=== PATIENT | female | born 1975 | race Caucasian/White ===

== ENCOUNTER 2017-04-10 20:03 | Emergency (ER) | payer SELFPAY ==
[2017-04-10 20:29] VITALS: BP 131/51
--- NOTE | 2017-04-10 21:59 | UC ---
Knee Pain HPI - HPI Summary HPI Summary: 41 yo female tripped at workbthis AM valgus stress to knee now hurts to extend and medial knee pain - History of Current Complaint Chief Complaint: UCLowerExtremity Stated Complaint: KNEE INJURY Time Seen by Provider: 04/10/17 21:44 Hx Obtained From: Patient Hx Last Menstrual Period: 03/24/17 Onset/Duration: Sudden Onset, Lasting Hours Severity Initially: Moderate Severity Currently: Mild Location Of Injury: right knee Pain Intensity: 3 - much worse with movement Pain Scale Used: 0-10 Numeric Character: Sharp, Aching Aggravating Factor(s): Movement, Weight Bearing Alleviating Factor(s): Rest, OTC Meds Able to Bear Weight: Yes - Allergies/Home Medications Allergies/Adverse Reactions: Allergies Allergy/AdvReac Type Severity Reaction Status Date / Time Hydrocodone Allergy Severe Rash Verified 04/10/17 20:29 Latex Allergy Severe Rash Verified 04/10/17 20:29 Home Medications: Home Medications Sertraline* [Zoloft*] 100 mg PO DAILY 04/10/17 [History Confirmed 04/10/17] PMH/Surg Hx/FS Hx/Imm Hx Previously Healthy: Yes Endocrine History: Hypothyroidism Psychological History: Depression - Surgical History Surgical History: Yes Surgery Procedure, Year, and Place: ECTOPIC RUPTURE (TUBE REPAIRED). 3 ANKLE SURGERIES. T&A. D&C (FOLLOWING MISCARRIAGE). x2 . SURGERY TO REMOVE TOOTHPICK FROM FOOT - Family History Known Family History: Positive: Hypertension - Social History Alcohol Use: None Substance Use Type: None Smoking Status (MU): Former Smoker Amount Used/How Often: 1 ppd Length of Time of Smoking/Using Tobacco: from age 15 to 41 When Did the Patient Quit Smoking/Using Tobacco: quit 01/13 - Immunization History Most Recent Influenza Vaccination: 09/10/13 Most Recent Tetanus Shot: 05/28/14 Most Recent Pneumonia Vaccination: none Review of Systems Constitutional: Negative Skin: Negative Eyes: Negative ENT: Negative Respiratory: Negative Cardiovascular: Negative Gastrointestinal: Negative Genitourinary: Negative Motor: Negative Neurovascular: Negative Musculoskeletal: Arthralgia Neurological: Negative Psychological: Negative Is Patient Immunocompromised?: No All Other Systems Reviewed And Are Negative: Yes Physical Exam Triage Information Reviewed: Yes Appearance: Well-Appearing, No Pain Distress, Well-Nourished Vital Signs: Initial Vital Signs Temp 98.0 F 04/10/17 20:25 Pulse 84 04/10/17 20:25 Resp 14 04/10/17 20:25 BP 131/51 04/10/17 20:25 Pulse Ox 100 04/10/17 20:25 Vital Signs Reviewed: Yes Eyes: Positive: Conjunctiva Clear ENT: Positive: Hearing grossly normal. Negative: Nasal congestion, Nasal drainage, Trismus, Muffled/hoarse voice Neck: Positive: Supple, Nontender Respiratory: Positive: Lungs clear, Normal breath sounds, No respiratory distress Cardiovascular: Positive: RRR, No Murmur Musculoskeletal: Positive: Other: - see image Neurological: Positive: Alert Psychological Exam: Normal Skin Exam: Normal Knee Pain Course/Dx - Differential Dx/Diagnosis Provider Diagnoses: right knee injury. suspect medial meniscus tear Discharge - Discharge Plan Condition: Stable Disposition: HOME Patient Education Materials: Meniscus Tear (ED) Forms: *Work Release Referrals: Moon Vazquez MD [Medical Doctor] - As Soon As Possible Additional Instructions: knee immobilizer rest elevate ice advil Images Front/Back of Body, Lg (Ceiba): 1 - tender medial joint line. stable joint. no effusion
--- NOTE | 2017-04-11 07:17 | RAD ---
INDICATION: Right knee injury. TECHNIQUE: 4 views of the right knee were obtained. FINDINGS: The bones are in normal alignment. No joint effusion or fracture is seen. Joint spaces appear maintained. IMPRESSION: NO EVIDENCE FOR FRACTURE.
== END 2017-04-10 22:51 | disposition home or self-care (01) ==
LOC: UCEAST 20:03
DX: S89.91XA Unspecified injury of right lower leg, initial encounter (principal); W18.40XA Slipping, tripping and stumbling without falling, unspecified, initial encounter; Y93.9 Activity, unspecified; Y92.9 Unspecified place or not applicable; Y99.0 Civilian activity done for income or pay; F32.9 Major depressive disorder, single episode, unspecified; Z87.891 Personal history of nicotine dependence
CPT/HCPCS: 99212; G0463

== ENCOUNTER 2017-07-21 19:28 | Emergency (ER) | payer OTHER ==
[2017-07-21] MEDS ORDERED: Amoxicillin/Clavulanate TAB* 875 MG PO ONE (20:22)
[2017-07-21 20:39] VITALS: BP 131/91
--- NOTE | 2017-07-23 22:43 | UC ---
Meghna Paiz Thomas, scribed for Ru Hernandez MD on 07/21/17 at 202 . Ear Complaint HPI - HPI Summary HPI Summary: The patient is a 41 year old female presenting to Urgent Care complaining of right ear pain that began two days ago. The pain is constant and is describes as sharp. She has a history of sinus infections. Patient additionally complains of postnasal drip. - History of Current Complaint Stated Complaint: EAR,SINUS PAIN Time Seen by Provider: 07/21/17 20:14 Hx Obtained From: Patient Hx Last Menstrual Period: 03/24/17 Onset/Duration: Lasting Days - 2, Still Present Severity Currently: Moderate Aggravating Factors: Nothing Alleviating Factors: Nothing Associated Signs/Symptoms: Negative: Trauma to Ear Related History: Other (Noted In Comments) - Hx of sinus infections - Allergies/Home Medications Allergies/Adverse Reactions: Allergies Allergy/AdvReac Type Severity Reaction Status Date / Time Hydrocodone Allergy Severe Rash Verified 07/22/17 13:19 Latex Allergy Severe Rash Verified 07/22/17 13:19 PMH/Surg Hx/FS Hx/Imm Hx Previously Healthy: No - Sinus infections; NEGATIVE: DM - Surgical History Surgical History: Yes Surgery Procedure, Year, and Place: ECTOPIC RUPTURE (TUBE REPAIRED). 3 ANKLE SURGERIES. T&A. D&C (FOLLOWING MISCARRIAGE). x2 . SURGERY TO REMOVE TOOTHPICK FROM FOOT - Family History Known Family History: Positive: Hypertension - Social History Lives: With Family Alcohol Use: None Substance Use Type: None Smoking Status (MU): Former Smoker Amount Used/How Often: 1 ppd Length of Time of Smoking/Using Tobacco: from age 15 to 41 When Did the Patient Quit Smoking/Using Tobacco: quit 01/13 - Immunization History Most Recent Influenza Vaccination: 09/10/13 Most Recent Tetanus Shot: 05/28/14 Most Recent Pneumonia Vaccination: none Review of Systems Constitutional: Other - NEGATIVE: fever ENT: Ear Ache - R, Other - Postnasal drip Is Patient Immunocompromised?: No All Other Systems Reviewed And Are Negative: Yes Physical Exam Triage Information Reviewed: Yes Vital Signs: Initial Vital Signs Temp 98.2 F 07/21/17 20:27 Pulse 107 07/21/17 20:27 Resp 16 07/21/17 20:27 BP 131/91 07/21/17 20:27 Pulse Ox 96 07/21/17 20:27 Vital Signs Reviewed: Yes - Additional Comments VITAL SIGNS: Reviewed. GENERAL: Patient is a well-developed and nourished female who is lying comfortable in the stretcher. Patient is not in any acute respiratory distress. HEAD AND FACE: Normocephalic. She has maxillary sinus tenderness. EYES: PERRLA, EOMI x 2. EARS: Hearing grossly intact. NOSE: There is some nasal mucosa erythema. MOUTH: Oropharynx within normal limits. There is some postnasal drip. NECK: Supple, trachea is midline, no adenopathy, no JVD, no carotid bruit. CHEST: Symmetric, no tenderness at palpation LUNGS: Clear to auscultation bilaterally. No wheezing or crackles. CVS: Regular rate and rhythm, S1 and S2 present, no murmurs or gallops appreciated. ABDOMEN: Soft, non-tender. Bowel sounds are normal. No abdominal abnormal pulsations. EXTREMITIES: Full ROM in all major joints, no edema, no cyanosis or clubbing. NEURO: Alert and oriented x 3. No acute neurological deficits. Speech is normal and follows commands. SKIN: Dry and warm Ear Complaint Course/Dx - Course Course Of Treatment: The patient is a 41 year old female presenting to Urgent Care complaining of right ear pain that began two days ago. The pain is constant and is describes as sharp. She has a history of sinus infections. Patient additionally complains of postnasal drip. She has maxillary sinus tenderness. There is some nasal mucosa erythema. There is some postnasal drip. The patient was given Augmentin at urgent care. The patient is diagnosed with sinusitis. The patient will be discharged home and instructed to follow up with primary care. The patient is prescribed Augmentin. - Differential Dx/Diagnosis Differential Diagnosis/HQI/PQRI: Bronchitis, Pharyngitis, URI Provider Diagnoses: Sinusitis Discharge - Discharge Plan Condition: Stable Disposition: HOME Prescriptions: Amoxicillin/Clavulanate TAB* [Augmentin TAB 875*] 875 mg PO BID #19 tab Patient Education Materials: Sinusitis (ED) Referrals: Dudley Rodriguez MANAGER [employer] [Primary Care Provider] - 3 Days Additional Instructions: Follow up with your primary care physician in three days. Return to urgent care for any new or worsening symptoms. The documentation as recorded by the Meghna lindsey Thomas accurately reflects the service I personally performed and the decisions made by me, Ru Hernandez MD.
== END 2017-07-21 21:10 | disposition home or self-care (01) ==
LOC: UCEAST 19:28
DX: J32.9 Chronic sinusitis, unspecified (principal); Z88.5 Allergy status to narcotic agent; Z91.040 Latex allergy status; Z87.891 Personal history of nicotine dependence
CPT/HCPCS: 99212; A9270-GY; G0463

== ENCOUNTER 2017-07-22 11:41 | Emergency (ER) | payer OTHER ==
[2017-07-22 13:25] VITALS: BP 118/78
--- NOTE | 2017-07-22 14:01 | UC ---
General HPI - HPI Summary HPI Summary: PT presents to ED requesting flu testing. 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 pt was evaluated yesterday at and dx with Amox. Pt states her sx have improved - continues with green congestion. Pt is also taking flonase. Pt with slight wheeze. Pt's son was dx with influenza yesterday and she is requesting testing. No fever, chills. No cp. no abdominal pain. no n/v/d. Pt has been using son's inhaler intermittently for wheeze with good effect. Pt's medications reviewed this visit [facility] 07/19/17 - History of Current Complaint Chief Complaint: UCGeneralIllness Stated Complaint: COUGH Time Seen by Provider: 07/22/17 13:27 Hx Obtained From: Patient, Medical Records Hx Last Menstrual Period: 07/19/17 Onset/Duration: Gradual Onset Timing: Constant Onset Severity: Moderate Current Severity: Moderate Associated Signs & Symptoms: Positive: Cough, Wheezing. Negative: Dizziness - Allergy/Home Medications Allergies/Adverse Reactions: Allergies Allergy/AdvReac Type Severity Reaction Status Date / Time Hydrocodone Allergy Severe Rash Verified 07/22/17 13:19 Latex Allergy Severe Rash Verified 07/22/17 13:19 PMH/Surg Hx/FS Hx/Imm Hx Previously Healthy: Yes Psychological History: Depression - Surgical History Surgical History: Yes Surgery Procedure, Year, and Place: ECTOPIC RUPTURE (TUBE REPAIRED). 3 ANKLE SURGERIES. T&A. D&C (FOLLOWING MISCARRIAGE). x2 . SURGERY TO REMOVE TOOTHPICK FROM FOOT - Family History Known Family History: Positive: Hypertension - Social History Occupation: Employed Full-time Lives: With Family Alcohol Use: None Substance Use Type: None Smoking Status (MU): Light Every Day Tobacco Smoker - 5 cig/day Amount Used/How Often: 1 ppd Length of Time of Smoking/Using Tobacco: from age 15 to 41 When Did the Patient Quit Smoking/Using Tobacco: quit 01/13 - Immunization History Most Recent Influenza Vaccination: 2016 Most Recent Tetanus Shot: 05/28/14 Most Recent Pneumonia Vaccination: none Review of Systems Constitutional: Negative ENT: Sinus Congestion Respiratory: Cough All Other Systems Reviewed And Are Negative: Yes Physical Exam Triage Information Reviewed: Yes Appearance: Well-Appearing, No Pain Distress, Well-Nourished Vital Signs: Initial Vital Signs Temp 97.2 F 07/22/17 13:20 Pulse 87 07/22/17 13:20 Resp 20 07/22/17 13:20 BP 118/78 07/22/17 13:20 Pulse Ox 100 07/22/17 13:20 Vital Signs Reviewed: Yes Eye Exam: Normal Eyes: Positive: Conjunctiva Clear ENT Exam: Normal ENT: Positive: Pharynx normal, Nasal congestion, TMs normal, Other - turbinates inflammed and boggy + PND uvula midline no exudate, no erythema Dental Exam: Normal Neck exam: Normal Neck: Positive: Supple, Nontender, No Lymphadenopathy Respiratory Exam: Normal Respiratory: Positive: Chest non-tender, Lungs clear, Normal breath sounds, Wheezing - few scattered wheeze. Negative: No respiratory distress Cardiovascular Exam: Normal Cardiovascular: Positive: RRR, No Murmur, Pulses Normal Abdominal Exam: Normal Abdomen Description: Positive: Nontender, No Organomegaly, Soft Musculoskeletal Exam: Normal Neurological Exam: Normal Neurological: Positive: Alert Psychological Exam: Normal Skin Exam: Normal Course/Dx - Course Course Of Treatment: Pt on abx for amoxicillin. Pt family member + flu (child) . Will start Tamiflu prohpylaxis. Rx MDI albuterol - pt using son's. Pt requesting diflucan for abx related yeast. secretion precaution. hydrate. continue with current tx - Differential Dx - Multi-Symptom Provider Diagnoses: sinusitis. influenza exposure Discharge - Discharge Plan Condition: Stable Disposition: HOME Prescriptions: Albuterol HFA INHALER* [Ventolin HFA Inhaler*] 1 puff INH Q4H PRN #1 mdi PRN Reason: wheeze Fluconazole 150 MG (NF) [Diflucan 150 mg (NF)] 150 mg PO ONCE PRN #1 tab PRN Reason: yeast infection Oseltamivir Phosphate [Tamiflu] 75 mg PO DAILY #7 cap Patient Education Materials: Sinusitis (ED) Referrals: Dudley Rodriguez NP [Primary Care Provider] - Additional Instructions: - Finish antibiotics as previously prescribed for sinus infection - you have been given a prescription for diflucan - okay to take if you need for yeast infection following your antibiotics - Use inhaler - 2 puffs, every 4 hours for wheeze and cough - Take Tamiflu once daily for influenza prophylaxis - Work to decrease cigarette smoke - - After you have been on antibiotics for 2 days - change your toothbrush and your pillowcase. These infections are spread by secretions - do NOT share eating or drinking utensils - clean items you share with other people such as cell phones, computer mouse, TV remote, computer tablets, etc - Contact your doctor or return with questions or concerns
== END 2017-07-22 14:10 | disposition home or self-care (01) ==
LOC: UCEAST 11:41
DX: J32.9 Chronic sinusitis, unspecified (principal); Z20.828 Contact with and (suspected) exposure to other viral communicable diseases; Z88.5 Allergy status to narcotic agent; F32.9 Major depressive disorder, single episode, unspecified; F17.210 Nicotine dependence, cigarettes, uncomplicated; Z91.040 Latex allergy status
CPT/HCPCS: 87502; 99212; G0463

== ENCOUNTER 2018-07-18 07:29 | Day surgery (SDC) | payer OTHER ==
[~2018-07-18 07:29] MED LIST: Buffered Lidocaine 0.9% SYRIN* 5 ML/SYR SYRINGE INTRADERM ONE; Famotidine IV* 10 MG/ML 2 ML (20 mg) IV ONE; Lactated Ringers 1000 ML Bag* 1,000 ML IV SCH
[2018-07-18] MEDS ORDERED: Famotidine IV* 10 MG/ML 2 ML (20 mg) ONE (08:09)
[2018-07-18] MEDS ORDERED: Midazolam* 1 MG/ML 5 ML VIAL (5 MG) ONE (09:16)
[2018-07-18] MEDS ORDERED: Rocuronium* 10 MG/ML VIAL ONE (09:27)
[2018-07-18] MEDS ORDERED: fentaNYL* 50 MCG/ML 2 ML VIAL (100 MCG VIAL) ONE ×2 (09:27→09:40)
[2018-07-18] MEDS ORDERED: Succinylcholine* 20 MG/ML 10 ML VIAL ONE (09:38)
[2018-07-18] MEDS ORDERED: Dexamethasone IV* 4 MG/ML 1 ML (4 MG) ONE (09:38)
[2018-07-18] MEDS ORDERED: Ondansetron INJ* 2 MG/ML VIAL ONE (09:38)
[2018-07-18] MEDS ORDERED: Propofol* 10 MG/ML 20 ML BTL ONE (09:38)
[2018-07-18] MEDS ORDERED: DiMENhydriNATE IV* 50 MG/ML VIAL ONE (09:38)
[2018-07-18] MEDS ORDERED: Ketorolac INJ* 30 MG/ML 1 ML VIAL ONE (09:38)
[2018-07-18] MEDS ORDERED: Lidocaine 2% PF * 5 ML VIAL ONE (09:39)
[2018-07-18] MEDS ORDERED: Acetaminophen IV 1GM/100ML * 1,000 MG/100 ML VIAL IVPB ONE (09:57)
[2018-07-18] MEDS ORDERED: Naloxone* 0.4 MG/ML 1 ML VIAL IV PRN (09:57)
[2018-07-18] MEDS ORDERED: DiMENhydriNATE IV* 50 MG/ML VIAL IV PUSH PRN (09:57)
[2018-07-18] MEDS ORDERED: oxyCODONE/Acetamin 5/325 MG* TAB PO PRN (09:57)
[2018-07-18] MEDS ORDERED: HYDROmorphone INJ1* 1 MG/ML SYRINGE IV PRN (09:57)
[2018-07-18] MEDS ORDERED: Acetaminophen IV 1GM/100ML * 100 ML ONE (10:25)
[2018-07-18 11:03] VITALS: BP 112/74
--- NOTE | 2018-07-18 12:20 | OP ---
DATE OF OPERATION: 07/18/18 - [facility] DATE OF : 79 SURGEON: Evans Camacho MD ANESTHESIA: General endotracheal tube. PRE-OP DIAGNOSIS: Desires permanent sterilization. POST-OP DIAGNOSIS: Desires permanent sterilization. OPERATIVE PROCEDURE: Laparoscopic bilateral tubal ligation. COMPLICATIONS: None. FINDINGS: On laparoscopy, the anterior vesicoperitoneal fold_ contained some scarring of the uterus to the anterior bladder flap. Both tubes and ovaries appeared normal. The uterus appeared normal. DESCRIPTION OF PROCEDURE: The patient was identified, procedure identified as a laparoscopic bilateral tubal ligation. The patient was taken to the operating room, prepped and draped in the usual fashion in the dorsal lithotomy position under general anesthesia. A small infraumbilical incision was made and a Verses needle was inserted through this. The abdomen was insufflated to 50 mmHg. The Veress needle was removed and the trocar was inserted and the laparoscope was inserted and above findings were noted. A second incision was made 2 cm above the pubic symphysis in the midline, and a second trocar was inserted under direct visualization. Because of the location of the second trocar close to the laparoscope, we opted to replace that because it was too close. At this point, the right fallopian tube was grasped in its mid portion, followed out to its fimbriated ends and fulgurated x4. The same procedure was carried out on the left after following it out to its fimbriated ends. Hemostasis was verified. All the instruments removed from the abdomen. The abdomen was deflated of CO2. Sponge and sponge stick removed from vagina and the patient returned to recovery room in stable condition. [id number]/[facility] #: [id number] [facility]
== END 2018-07-18 11:05 | disposition home or self-care (01) ==
LOC: OR 07:29
PROVIDERS: ATTEND Obstetrics & Gynecology
DX: Z30.2 Encounter for sterilization (principal); A60.04 Herpesviral vulvovaginitis; Z87.891 Personal history of nicotine dependence; E03.9 Hypothyroidism, unspecified; J43.9 Emphysema, unspecified; E66.01 Morbid (severe) obesity due to excess calories; F41.9 Anxiety disorder, unspecified
CPT/HCPCS: 81025; J0330; J1100; J1240; J1885; J2250; J2405; J2704; J3010

== ENCOUNTER 2018-11-11 08:36 | Emergency (ER) | payer OTHER ==
[2018-11-11 09:00] VITALS: BP 124/81
--- NOTE | 2018-11-11 09:33 | UC ---
Back Pain HPI - HPI Summary HPI Summary: 42 yo female with the onset of severe LBP yesterday Often has back strains but this is atpical for severe certain movements cause severe sharp pains which radiate to her right flank no leg pain or paresthesias no UTI symptoms no f/c no bowel or bladder dysfunction - History of Current Complaint Chief Complaint: UCBackPain Stated Complaint: BACK PAIN Time Seen by Provider: 11/11/18 09:06 Hx Obtained From: Patient Hx Last Menstrual Period: 10/28/18 Onset/Duration: Gradual Onset, Lasting Hours Timing: Constant Severity Initially: Severe Severity Currently: Severe Pain Intensity: 7 Pain Scale Used: 0-10 Numeric Back Pain: Is Discrete @, Radiates To - right flank Character: Aching, Throbbing, Spasmodic Aggravating Factor(s): Movement Alleviating Factor(s): Nothing Associated Signs And Symptoms: Positive: Flank Pain. Negative: Swelling, Redness, Bruising, Fever, Weakness, Numbness, Tingling, Abdominal Pain, Bladder Incontinence, Bowel Incontinence, Weight Loss, Pain with Weight Bearing Full Body (No Head): 1 - pain 2 - radiates here - Allergies/Home Medications Allergies/Adverse Reactions: Allergies Allergy/AdvReac Type Severity Reaction Status Date / Time latex Allergy Severe Rash Verified 11/11/18 09:00 hydrocodone Allergy Rash Verified 11/11/18 09:00 environmental Allergy itchy eyes Uncoded 11/11/18 09:00 PMH/Surg Hx/FS Hx/Imm Hx Previously Healthy: Yes - Surgical History Surgical History: Yes Surgery Procedure, Year, and Place: ECTOPIC RUPTURE (TUBE REPAIRED). 3 ANKLE SURGERIES - FRACTURES - ALL HARDEWARE REMOVED. T&A. tubal. D&C ( FOLLOWING MISCARRIAGE)& SURG . x2 . SURGERY TO REMOVE TOOTHPICK FROM FOOT. SEPTOPLASTY AND TURBULANT REDUCTION 12/2017 - Family History Known Family History: Positive: Hypertension - Social History Alcohol Use: None Substance Use Type: None Smoking Status (MU): Former Smoker Amount Used/How Often: pack a day for 30 yrs Length of Time of Smoking/Using Tobacco: from age 15 to 41 Have You Smoked in the Last Year: Yes When Did the Patient Quit Smoking/Using Tobacco: 5 months ago - Immunization History Most Recent Influenza Vaccination: 2017 Most Recent Tetanus Shot: 05/28/14 Most Recent Pneumonia Vaccination: none Review of Systems All Other Systems Reviewed And Are Negative: Yes Constitutional: Positive: Negative Skin: Positive: Negative Eyes: Positive: Negative ENT: Positive: Negative Respiratory: Positive: Negative Cardiovascular: Positive: Palpitations Gastrointestinal: Positive: Negative Genitourinary: Positive: Negative Motor: Positive: Negative Neurovascular: Positive: Negative Musculoskeletal: Positive: Myalgia - back Neurological: Positive: Negative, Other - -SLR Psychological: Positive: Negative Physical Exam Triage Information Reviewed: Yes Appearance: Well-Appearing, No Pain Distress, Well-Nourished Vital Signs: Initial Vital Signs Temp 98.2 F 11/11/18 08:56 Pulse 73 11/11/18 08:56 Resp 18 11/11/18 08:56 BP 124/81 11/11/18 08:56 Pulse Ox 98 11/11/18 08:56 Vital Signs Reviewed: Yes Eyes: Positive: Conjunctiva Clear ENT: Positive: Hearing grossly normal, Uvula midline. Negative: Nasal congestion, Nasal drainage, Tonsillar exudate, Trismus, Muffled voice, Hoarse voice Dental Exam: Normal Neck: Positive: Supple, Nontender, No Lymphadenopathy Respiratory: Positive: Lungs clear, Normal breath sounds, No respiratory distress, No accessory muscle use Cardiovascular: Positive: RRR, No Murmur Abdomen Description: Positive: Nontender, No Organomegaly. Negative: CVA Tenderness (R) Musculoskeletal: Positive: ROM Intact, No Edema Neurological: Positive: Alert Psychological Exam: Normal Skin Exam: Normal Diagnostics - Radiology No standard instances Radiology Interpretation Completed By: Radiologist Summary of Radiographic Findings: LS films (-) Back Pain Course/Dx - Course Course Of Treatment: UA- no leuks or RBCs - Differential Dx/Diagnosis Provider Diagnosis: Acute lumbar myofascial strain Discharge - Sign-Out/Discharge Documenting (check all that apply): Patient Departure All imaging exams completed and their final reports reviewed: Yes - Discharge Plan Condition: Stable Disposition: HOME Prescriptions: Cyclobenzaprine HCl 5 mg PO TID PRN #21 tablet PRN Reason: Spasms Patient Education Materials: Low Back Strain (ED) Forms: *Work Release Referrals: Jennifer,Dudley, TELEPHONE DIRECTORY DISTRIBUTOR DRIVER [Primary Care Provider] - 4 Days (if not better) - Billing Disposition and Condition Condition: STABLE Disposition: Home
== END 2018-11-11 10:45 | disposition home or self-care (01) ==
LOC: UCEAST 08:36
DX: S39.012A Strain of muscle, fascia and tendon of lower back, initial encounter (principal); X58.XXXA Exposure to other specified factors, initial encounter; Y92.9 Unspecified place or not applicable; R00.2 Palpitations; Z91.040 Latex allergy status; Z88.5 Allergy status to narcotic agent; Z91.048 Other nonmedicinal substance allergy status; Z87.891 Personal history of nicotine dependence
CPT/HCPCS: 72110; 81003; 99212; G0463

== ENCOUNTER 2019-06-27 08:26 | Emergency (ER) | payer OTHER ==
[2019-06-27 08:36] VITALS: BP 120/77
--- NOTE | 2019-06-27 08:45 | UC ---
Lower Extremity/Ankle HPI - HPI Summary HPI Summary: Week ago she twisted her left foot and since that time and has been swollen and discolored. She comes in for an x-ray just to make sure it is not broken. It doesn't hurt that much to walk on it but it hurts to put her shoe on because of the swelling. - History of Current Complaint Chief Complaint: UCLowerExtremity Stated Complaint: L FOOT INJURY Time Seen by Provider: 06/27/19 08:35 Hx Obtained From: Patient Hx Last Menstrual Period: just finished - Jun 20 Onset/Duration: Sudden Onset Severity Initially: Moderate Severity Currently: Mild Pain Intensity: 2 Aggravating Factor(s): Other - Touch Able to Bear Weight: Yes - Allergies/Home Medications Allergies/Adverse Reactions: Allergies Allergy/AdvReac Type Severity Reaction Status Date / Time latex Allergy Severe Rash Verified 06/27/19 08:36 hydrocodone Allergy Rash Verified 06/27/19 08:36 environmental Allergy itchy eyes Uncoded 06/27/19 08:36 PMH/Surg Hx/FS Hx/Imm Hx Endocrine History: Thyroid Disease - Surgical History Surgical History: Yes Surgery Procedure, Year, and Place: ECTOPIC RUPTURE (TUBE REPAIRED). 3 ANKLE SURGERIES - FRACTURES - ALL HARDEWARE REMOVED. T&A. tubal ligation. D&C (FOLLOWING MISCARRIAGE)& SURG . x2 . SURGERY TO REMOVE TOOTHPICK FROM FOOT. SEPTOPLASTY AND TURBINATE REDUCTION 12/2017 - Family History Known Family History: Positive: Hypertension - Social History Alcohol Use: None Substance Use Type: None Smoking Status (MU): Former Smoker Amount Used/How Often: pack a day for 30 yrs Length of Time of Smoking/Using Tobacco: from age 15 to 41 Have You Smoked in the Last Year: Yes When Did the Patient Quit Smoking/Using Tobacco: 5 months ago - Immunization History Most Recent Influenza Vaccination: 2017 Most Recent Tetanus Shot: 05/28/14 Most Recent Pneumonia Vaccination: none Review of Systems All Other Systems Reviewed And Are Negative: Yes Musculoskeletal: Positive: Edema Physical Exam - Summary Physical Exam Summary: She was nontoxic in appearance with stable vital signs Triage Information Reviewed: Yes Appearance: Obese - Class III Vital Signs: Initial Vital Signs Temp 97.3 F 06/27/19 08:33 Pulse 77 06/27/19 08:33 Resp 16 11/29/19 08:33 BP 120/77 06/27/19 08:33 Pulse Ox 98 06/27/19 08:33 Vital Signs Reviewed: Yes Musculoskeletal: Positive: Edema @ - There is some mild swelling on the dorsum of the foot with an area of ecchymosis mid foot Neurological Exam: Normal Skin Exam: Normal Diagnostics - Radiology Left Foot Radiology Interpretation Completed By: Radiologist Summary of Radiographic Findings: No fracture Lower Extremity Course/Dx - Course Course Of Treatment: She just wanted to make sure there was no fracture. She is walking fine and does not want any kind of immobilization or restraint. - Differential Dx/Diagnosis Provider Diagnosis: Foot sprain Discharge ED - Sign-Out/Discharge Documenting (check all that apply): Patient Departure All imaging exams completed and their final reports reviewed: Yes - Discharge Plan Condition: Stable Disposition: HOME Patient Education Materials: Foot Sprain (ED) Referrals: Dudley Rodriguez NP [Primary Care Provider] - - Billing Disposition and Condition Condition: STABLE Disposition: Home
== END 2019-06-27 09:19 | disposition home or self-care (01) ==
LOC: UCEAST 08:26
DX: S93.602A Unspecified sprain of left foot, initial encounter (principal); E66.9 Obesity, unspecified; Z88.5 Allergy status to narcotic agent; Z91.040 Latex allergy status; Z91.09 Other allergy status, other than to drugs and biological substances; Z87.891 Personal history of nicotine dependence; X50.1XXA Overexertion from prolonged static or awkward postures, initial encounter; Y92.9 Unspecified place or not applicable
CPT/HCPCS: 99211; G0463

== ENCOUNTER 2019-09-06 09:00 | Emergency (ER) | payer OTHER ==
--- OUTSIDE RECORDS SUMMARY | 2019-09-06 09:07 | XMS REPORT | Continuity of Care Document ---
:1975 External Reference #:[id number] Author Name Dudley Rodriguez NP (transmitted by agent of provider Michelle Corbin) Address [address], [address] Unavailable [place] [id number] Care Team Providers Name Role Phone Carla Powell MD - Internal Care Team Information Telegraph Office Route Aide Medicine Problems Active Problems Provider Date Premenstrual dysphoric disorder Dudley Rodriguez NP Onset: 04/20/2015 Hypothyroidism Dudley Rodriguez NP Onset: 04/20/2015 Social History Type Date Description Comments Sex Unknown ETOH Use Denies alcohol use Tobacco Use Start: Unknown End: Patient is a former Quit february 2018 Unknown smoker Smoking Status Reviewed: 08/26/19 Patient is a former Quit february 2018 smoker Exercise Exercises rarely Type/Frequency Allergies, Adverse Reactions, Alerts Active Allergies Reaction Severity Comments Date Hydrocodone 11/09/2014 Latex 11/09/2014 Medications Active Medications SIG Qnty Indications Ordering Date Provider Fluconazole one by mouth november 2tabs Dudley Rodriguez NP 08/26/2019 150mg repeat in 3 days as Tablets needed Fluticasone 2 sprays each 16gm J20.9 Alma Varn, 07/15/2019 Propionate nostril daily as N.P. 50mcg/Act needed Suspension Ventolin HFA 1 to 2 inhalations 16gm J20.9 Alma Varn, 07/15/2019 every 4 hours as N.P. 108(90Base) mcg/Act needed Aerosol Metformin HCL Take 1 Tablet By 30tabs Dudley Rodriguez NP 01/23/2019 500mg Mouth Once Daily Tablets Valacyclovir HCL one by mouth two 28tabs Dudley Rodriguez NP 01/23/2019 1gm times a day x 7 Tablets days Fluoxetine HCL Take 1 Capsule By 30caps F41.Luigi Rodriguez NP 12/30/2018 20mg Mouth Once Daily Capsules Omeprazole Take 1 Capsule By 30caps K30 Dudley Rodriguez NP 09/12/2018 20mg Mouth Once Daily Capsules DR Duquezolam take 1 tablet by 20tabs F41.9 Dudley Rodriguez NP 06/14/2018 0.25mg mouth once daily as Tablets needed for anxiety max/day--1 tablet Naproxen Take 1 Tablet By 60tabs Emir Youssef 04/12/2017 500mg Tablets Mouth Twice Daily MD Sawyer With Food as needed Cetirizine HCL Take 1 Tablet By 30tabs Dudley Rodriguez NP 06/25/2015 10mg Mouth Once Daily Tablets Levothyroxine Sodium Take 1 Tablet By 30tabs Dudley Rodriguez NP 11/09/2014 Mouth Once Daily 50mcg Tablets History Medications Fluconazole one by mouth 2tabs Alma Paula, 07/18/2019 - 150mg may repeat in 3 N.P. 07/24/2019 Tablets days as needed Azithromycin two tabs day 6tabs J20.9 Alma Paula, 07/15/2019 - 250mg one, one daily N.P. 07/25/2019 Tablets till gone Medrol 6 by mouth day 21units J20.9 Alma Paula, 07/15/2019 - 4mg TBPK 1, 5 by mouth N.P. 07/21/2019 day 2, 4 by mouth day 3, 3 by mouth day 4, 2 by mouth day 5, 1 by mouth day 6 Amoxicillin/Clavulana take one tablet 20tabs J01.90 Dudley Rodriguez NP 2018 - te Potassium q12 hours for 06/26/2019 875-125mg 10 days Tablets Medications Administered in Office Medication SIG Qnty Indications Ordering Provider Date MASON Rodriguez NP 07/18/2017 Injection Depomedrol 40MG Emir Jacques MD 06/11/2017 Injection Influenza Virus Vaccine Unknown 04/06/2016 Injection PPD Dudley Rodriguez NP 11/09/2014 Injection Immunizations CPT Code Status Date Vaccine Lot # [id number] Given 05/15/2017 Influenza Virus Vaccine, Quadrivalent, Split, Preservative Free [id number] Given 05/28/2015 Influenza Virus Vaccine, Quadrivalent, Split, Preservative Free Vital Signs Date Vital Result Comment 08/26/2019 9:27am Height 65.25 inches 5'5.25" Weight 306.00 lb Heart Rate 88 /min BP Systolic 118 mmHg BP Diastolic 74 mmHg Body Temperature 97.5 F O2 % BldC Oximetry 97 % BMI (Body Mass Index) 50.5 kg/m2 07/15/2019 11:40am Height 65.25 inches 5'5.25" Weight 306.00 lb Heart Rate 89 /min BP Systolic Sitting 119 mmHg BP Diastolic Sitting 73 mmHg Body Temperature 98.5 F O2 % BldC Oximetry 97 % BMI (Body Mass Index) 50.5 kg/m2 Results Description No Information Available Procedures Date Code Description Status 08/13/2017 [id number] Mammogram Completed 01/29/2017 [id number] Mammogram Completed 07/19/2016 [id number] Mammogram Completed Medical Devices Description No Information Available Encounters Type Date Location Provider Dx Diagnosis Office Visit 07/15/2019 [facility] Alma Paula, J20.9 Acute bronchitis , 11:40a Medicine - [facility] N.P. unspecified Office Visit 06/16/2019 [facility] Dudley Rodriguez NP J01.90 Acute sinusitis , 11:40a Medicine - [facility] unspecified Assessments Date Code Description Provider 08/26/2019 R22.41 Localized swelling, mass and lump, right lower Dudley Rodriguez NP limb 08/26/2019 M79.604 Pain in right leg Dudley Rodriguez NP 08/26/2019 R25.2 Cramp and spasm Dudley Rodriguez NP 08/26/2019 E03.9 Hypothyroidism, unspecified Dudley Rodriguez NP 08/26/2019 Z13.220 Encounter for screening for lipoid disorders Dudley Rodriguez NP 07/15/2019 J20.9 Acute bronchitis, unspecified Alma Paula, N.P. 06/16/2019 J01.90 Acute sinusitis, unspecified Dudley Rodriguez NP Plan of Treatment 08/26/2019 - Dudely Rodriguez NPR22.41 Localized swelling, mass and lump, right lower limbNew Xrays:US Soft Tissue Extremity RT, Ordered: 08/26/19Comments:I have ordered an ultrasound to further evaluate.M79.604 Pain in right legNew Xrays:Hip Right 2 Views And Pelvis 11749 - 37078, Ordered: 08/26/19New Therapy: Physical YnklqnmX46.2 Cramp and tajrxX45.9 Hypothyroidism, moesklpkwhhR42.220 Encounter for screening for lipoid disorders Functional Status Description No Information Available Mental Status Description No Information Available Referrals Description No Information Available
--- OUTSIDE RECORDS SUMMARY | 2019-09-06 09:08 | XMS REPORT | Continuity of Care Document ---
:1975 External Reference #:[id number] Author Name Alma Paula N.PClare (transmitted by agent of provider Roxy Akers) Address [address], [place] [address] Care Team Providers Name Role Phone Carla Powell MD - Internal Care Team Information Associate Director Medicine Problems Active Problems Provider Date Premenstrual dysphoric disorder Dudley Rodriguez NP Onset: 04/20/2015 Hypothyroidism Dudley Rodriguez NP Onset: 04/20/2015 Social History Type Date Description Comments Sex Unknown ETOH Use Denies alcohol use Tobacco Use Start: Unknown End: Patient is a former Quit february 2018 Unknown smoker Smoking Status Reviewed: 07/15/19 Patient is a former Quit february 2018 smoker Exercise Exercises rarely Type/Frequency Allergies, Adverse Reactions, Alerts Active Allergies Reaction Severity Comments Date Hydrocodone 11/09/2014 Latex 11/09/2014 Medications Active Medications SIG Qnty Indications Ordering Date Provider Azithromycin two tabs day one, 6tabs J20.9 Alma Varn, 07/15/2019 250mg one daily till N.P. Tablets gone Medrol 6 by mouth day 1, 21units J20.9 Alma Varn, 07/15/2019 4mg TBPK 5 by mouth day 2, N.P. 4 by mouth day 3, 3 by mouth day 4, 2 by mouth day 5, 1 by mouth day 6 Fluticasone 2 sprays each 16gm J20.9 Alma [...] day x 7 Tablets days Fluoxetine HCL 1 by mouth every 30caps F41.9 Dudley Rodriguez NP 12/30/2018 20mg day Capsules Omeprazole Take 1 Capsule By 30caps K30 Dudley Rodriguez NP 09/12/2018 20mg Mouth Once Daily Capsules Alpzolam take 1 tablet by 20tabs F41.9 Dudley Rodriguez NP 06/14/2018 0.25mg mouth once daily Tablets as needed for anxiety max/day--1 tablet Naproxen Take 1 Tablet By 60tabs Emir Youssef 04/12/2017 500mg Tablets Mouth Twice Daily MD Sawyer With Food as needed Cetirizine HCL Take 1 Tablet By 30tabs Dudley Rodriguez NP 06/25/2015 10mg Mouth Once Daily Tablets Levothyroxine Sodium Take 1 Tablet By 30tabs Dudley Rodriguez NP 11/09/2014 Mouth Once Daily 50mcg Tablets History Medications Amoxicillin/Clavulanate take one 20tabs J01.90 Dudley Rodriguez 06/16/2019 - Potassium tablet q12 [employer] 06/26/2019 875-125mg Tablets hours for 10 days Amoxicillin take 1 tablet 20tabs H66.91 Dudley Rodriguez 01/23/2019 - 500mg Tablets by mouth [employer] 02/12/2019 twice a day for 10 days Medications Administered in Office Medication SIG Qnty Indications Ordering Provider Date MASON Rodriguez NP 07/18/2017 Injection Depomedrol 40MG Emir Jacques MD 06/11/2017 Injection Influenza Virus Vaccine Unknown 04/06/2016 Injection PPD Dudley Rodriguez NP 11/09/2014 Injection Immunizations CPT Code Status Date Vaccine Lot # [id number] Given 05/15/2017 Influenza Virus Vaccine, Quadrivalent, Split, Preservative Free [id number] Given 05/28/2015 Influenza Virus Vaccine, Quadrivalent, Split, Preservative Free Vital Signs Date Vital Result Comment 07/15/2019 11:40am Height 65.25 inches 5'5.25" Weight 306.00 lb Heart Rate 89 /min BP Systolic Sitting 119 mmHg BP Diastolic Sitting 73 mmHg Body Temperature 98.5 F O2 % BldC Oximetry 97 % BMI (Body Mass Index) 50.5 kg/m2 06/16/2019 11:54am Height 65.25 inches 5'5.25" Weight 303.38 lb Heart Rate 87 /min BP Systolic 132 mmHg BP Diastolic 81 mmHg Body Temperature 98.3 F O2 % BldC Oximetry 97 % BMI (Body Mass Index) 50.1 kg/m2 Results Test Acquired Date Facility Test Result H/L Range Note Laboratory test 02/12/2019 [facility] In House Rapid Group A (-) finding Strep Procedures Date Code Description Status 08/13/2017 [id number] Mammogram Completed 01/29/2017 [id number] Mammogram Completed 07/19/2016 [id number] Mammogram Completed Medical Devices Description No Information Available Encounters Type Date Location Provider Dx Diagnosis Office Visit 06/16/2019 [facility] Dudley Rodriguez NP J01.90 Acute sinusitis , 11:40a Medicine - [facility] unspecified Office Visit 02/12/2019 [facility] Ru Dangelo J02.9 Acute pharyngitis, 3:20p Medicine - [facility] Mack M.D. unspecified Office Visit 01/23/2019 [facility] Dudley Rodriguez NP K59.00 Constipation, 2:20p Medicine - [facility] unspecified K21.9 Gastro-esophageal reflux disease without esophagitis J01.90 Acute sinusitis, unspecified H66.91 Otitis media, unspecified, right ear Z68.43 Body mass index (BMI) 50.0-59.9, adult Assessments Date Code Description Provider 07/15/2019 J20.9 Acute bronchitis, unspecified Alma Paula, N.P. 06/16/2019 J01.90 Acute sinusitis, unspecified Dudley Jennifer, GARRETT 02/12/2019 J02.9 Acute pharyngitis, unspecified Ru Mack M.D. 01/23/2019 K59.00 Constipation, unspecified Dudley Jennifer, [employer] 01/23/2019 K21.9 Gastro-esophageal reflux disease without Dudley Jennifer, [employer] esophagitis 01/23/2019 J01.90 Acute sinusitis, unspecified Dudley Jennifer, GARRETT 01/23/2019 H66.91 Otitis media, unspecified, right ear Dudley Jennifer, GARRETT 01/23/2019 Z68.43 Body mass index (BMI) 50-59.9, adult Dudley Rodriguez NP Plan of Treatment 07/15/2019 - Alma Paula N.P.J20.9 Acute bronchitis, unspecifiedNew Medication:Azithromycin 250 mg - two tabs day one, one daily till goneMedrol 4 mg - 6 by mouth day 1, 5 by mouth day 2, 4 by mouth day 3, 3 by mouth day 4, 2 by mouth day5, 1 by mouth day 6Fluticasone Propionate 50 mcg/Act - 2 sprays each nostril daily as neededVentolin HFA 108(90 Base) mcg/Act - 1 to 2 inhalations every 4 hours as neededComments:For your bronchitis: I have sent a prescription to the pharmacy for Azithromycin. Take 2 tablets thefirst day then 1 tablet daily until they are gone for a total of 5 days. The medicine stays in your system for an additional 5 days. I sent in a prescription for a Medrol dose pack. You are to take 6 tablets the first day and then decrease by 1 tablet daily until they are gone for a total of 6 days. This is a steroid to help decrease inflammation. I sent in a prescription to the pharmacy for a Medroldose wes. This is a 6 day course of steroids.If your symptoms do not improve or if you should start to feel worse call the office. Functional Status Description No Information Available Mental Status Description No Information Available Referrals Refer to Reason for Referral [facility] Sent made 04/09 [address] [place] [address] [phone]
[2019-09-06 09:44] VITALS: BP 124/76
--- NOTE | 2019-09-06 11:00 | UC ---
Knee Pain HPI - HPI Summary HPI Summary: CHIEF COMPLAINT: LEFT KNEE PAIN HPI: fell down stairs yesterday. Pain over proximal tibia, below left knee. Nurse's note: " Pt c/o L knee pain that started when pt tripped down stairs yesterday. Pt states landed on a step yesterday completely straight but impact affected knee." - History of Current Complaint Chief Complaint: UCLowerExtremity Stated Complaint: KNEE PAIN Time Seen by Provider: 09/06/19 09:46 Hx Last Menstrual Period: 08/18/19 Pain Intensity: 5 - Allergies/Home Medications Allergies/Adverse Reactions: Allergies Allergy/AdvReac Type Severity Reaction Status Date / Time latex Allergy Severe Rash Verified 09/06/19 09:37 hydrocodone Allergy Rash Verified 09/06/19 09:37 environmental Allergy itchy eyes Uncoded 09/06/19 09:37 PMH/Surg Hx/FS Hx/Imm Hx Previously Healthy: Yes - Surgical History Surgical History: Yes Surgery Procedure, Year, and Place: ECTOPIC RUPTURE (TUBE REPAIRED). 3 ANKLE SURGERIES - FRACTURES - ALL HARDEWARE REMOVED. T&A. tubal ligation. D&C (FOLLOWING MISCARRIAGE)& SURG . x2 . SURGERY TO REMOVE TOOTHPICK FROM FOOT. SEPTOPLASTY AND TURBINATE REDUCTION 12/2017 - Family History Known Family History: Positive: Hypertension - Social History Alcohol Use: None Substance Use Type: None Smoking Status (MU): Former Smoker Amount Used/How Often: pack a day for 30 yrs Length of Time of Smoking/Using Tobacco: from age 15 to 41 Have You Smoked in the Last Year: Yes When Did the Patient Quit Smoking/Using Tobacco: 2018 - Immunization History Most Recent Influenza Vaccination: 2017 Most Recent Tetanus Shot: 05/28/14 Most Recent Pneumonia Vaccination: none Review of Systems All Other Systems Reviewed And Are Negative: Yes Constitutional: Positive: Fever Respiratory: Positive: Negative Cardiovascular: Positive: Negative Gastrointestinal: Positive: Negative Genitourinary: Positive: Negative Musculoskeletal: Positive: Other: - PAIN AND LIMITATION OF MOVEMENT, LEFT LOWER LEG Is Patient Immunocompromised?: No Physical Exam - Summary Physical Exam Summary: Positive findings: pain with movement and ambulation, proximal tibia, left. No left knee instability. Distal CMS intact. X-RAY: proximal, non-displaced tibia fracture on the left. Triage Information Reviewed: Yes Appearance: Pain Distress Vital Signs: Initial Vital Signs Temp 97.4 F 09/06/19 09:39 Pulse 80 09/06/19 09:39 Resp 16 09/06/19 09:39 BP 124/76 09/06/19 09:39 Pulse Ox 99 09/06/19 09:39 Vital Signs Reviewed: Yes Eye Exam: Normal ENT Exam: Normal Respiratory Exam: Normal Respiratory: Positive: Chest non-tender, Lungs clear Cardiovascular Exam: Normal Cardiovascular: Positive: RRR, No Murmur Abdomen Description: Positive: Nontender, No Organomegaly Musculoskeletal: Positive: ROM Limited @ - left lower leg below the knee; decreased movement secondary to pain. Negative: Edema @ Neurological Exam: Normal Skin Exam: Normal Knee Pain Course/Dx - Course Course Of Treatment: 43 y/o comes in with left upper tibia pain; slipped on stairs; landed on straight left leg; significant discomfort and limitation of movement; distal CMS intact; x ray as below. Discussed condition and need for follow up. Patient given sukh and crutches. She has her own knee brace. She states that she will follow up with Dr. Bahena. X RAY: LEFT KNEE The bones are in normal alignment. There is an oblique radiolucent line extending through the proximal medial tibia at the junction of the metaphysis and diaphysis with adjacent cortical thickening suggestive of a subacute nondisplaced fracture. No other fractures are seen. No joint effusion is present. Joint spaces appear maintained. IMPRESSION: FINDINGS SUGGESTIVE OF A SUBACUTE NONDISPLACED FRACTURE OF THE LEFT MEDIAL PROXIMAL TIBIA. - Differential Dx/Diagnosis Differential Diagnosis/HQI/PQRI: Fracture (Closed), Sprain, Strain Provider Diagnosis: Tibia fracture Discharge ED - Sign-Out/Discharge Documenting (check all that apply): Patient Departure All imaging exams completed and their final reports reviewed: Yes - Discharge Plan Condition: Stable Disposition: HOME Patient Education Materials: Leg Fracture (ED) Referrals: Dudley Rodriguez NP [Primary Care Provider] - Additional Instructions: WE DISCUSSED: PLEASE SEEK CARE AT THE EMERGENCY DEPARTMENT IF SYMPTOMS WORSEN OR IF NEW SYMPTOMS DEVELOP. FOLLOW UP WITH YOUR PRIMARY CARE PHYSICIAN IF CONDITION CONTINUES BEYOND 3 DAYS WITHOUT IMPROVEMENT. YOUR DIAGNOSIS IS: SUBACUTE NONDISPLACED FRACTURE OF THE MEDIAL PROXIMAL TIBIA on the left YOUR PRESCRIPTION RECOMMENDATION IS: OTHER INSTRUCTIONS: use sukh, brace and crutches so you can be non-weight bearing. Follow up orthopedics on Sunday. Go to ED for any sudden increase in pain or disability. FOR PAIN AND/OR SLEEP: For pain: Ibuprofen (Motrin and other brand names) 400-600mg PLUS acetaminophen (Tylenol and other brand names) 500mg - 1000mg every 8 hours. - Billing Disposition and Condition Condition: STABLE Disposition: Home
== END 2019-09-06 11:50 | disposition home or self-care (01) ==
LOC: UCEAST 09:00
DX: S82.202A Unspecified fracture of shaft of left tibia, initial encounter for closed fracture (principal); R50.9 Fever, unspecified; W10.9XXA Fall (on) (from) unspecified stairs and steps, initial encounter; Y92.9 Unspecified place or not applicable; Z91.040 Latex allergy status; Z91.09 Other allergy status, other than to drugs and biological substances; Z88.8 Allergy status to other drugs, medicaments and biological substances; Z87.891 Personal history of nicotine dependence
CPT/HCPCS: 99213; G0463